=== PATIENT | female | born 1990 | race African-American/Black ===

== ENCOUNTER 2020-12-01 01:53 | Inpatient (IN) | payer OTHER ==
[~2020-12-01 01:53] MED LIST: MOTRIN600 MG PO; ROBAXIN500 MG PO
[2020-12-01 02:56] LABS: HCT 33.8 % (37.0-47.0); HGB 9.6 g/dl (12.5-16.0); MCH 21.1 pg (25.0-31.0); MCHC 28.4 g/dL (32.0-36.0); MCV 74.1 fL (78.0-100.0); MPV 11.3 fL (6.0-9.5); RBC 4.56 M/uL (4.20-5.40); RDW 19.6 % (11.5-14.0); WBC 13.2 K/uL (4.0-10.5)
[2020-12-01 07:20] LABS: BILIRUBIN NEGATIVE (NEGATIVE); BLOOD TRACE-INTACT Ery/uL (NEGATIVE); CLARITY CLEAR (CLEAR); COLOR YELLOW (YELLOW); GLUCOSE (U) NORMAL (NORMAL); LEUKOCYTES NEGATIVE Leu/uL (NEGATIVE); NITRITE NEGATIVE (NEGATIVE); PROTEIN NEGATIVE (NEGATIVE); pH 6.5 (5.0-9.0)
[2020-12-01 07:30] LABS: SQUAMOUS EPITHELIAL CELLS RARE; URINARY RBC RARE
[2020-12-02 06:07] LABS: HGB 7.9 g/dl (12.5-16.0); MCHC 28.2 g/dL (32.0-36.0); MCV 74.5 fL (78.0-100.0); MPV 10.5 fL (6.0-9.5); RBC 3.76 M/uL (4.20-5.40); RDW 19.7 % (11.5-14.0); WBC 14.8 K/uL (4.0-10.5)
[2020-12-02] MEDS ORDERED: MOTRIN600 MG PO (10:14)
[2020-12-02] MEDS ORDERED: NUVARING VAGIN1 EACH VG (10:14)
[2020-12-02] MEDS ORDERED: COLACE100 MG PO (10:14)
[2020-12-02] MEDS ORDERED: FEOSOL325 MG PO (10:14)
[2020-12-02] MEDS ORDERED: PRENATAL FORMU1 EACH PO (10:14)
== END 2020-12-03 10:15 | disposition home or self-care (01) | DRG 806 ==
LOC: FOB 01:53
PROVIDERS: ADMIT Obstetrics & Gynecology
PROC: 10E0XZZ Delivery of Products of Conception, External Approach (ICD-10-PCS; principal; 2020-12-01)
DX: O99.013 Anemia complicating pregnancy, third trimester (principal); D62 Acute posthemorrhagic anemia; Z37.0 Single live birth; Z3A.38 38 weeks gestation of pregnancy
CPT/HCPCS: 36415; 81001; 86900; 90715; J0595; J2916; J7120; U0002